=== PATIENT | female | born 1960 | race Caucasian/White ===

== ENCOUNTER 2017-02-25 16:16 | Emergency (ER) | payer OTHER ==
[2017-02-25] MEDS ORDERED: ASPIRIN 325 MG TABLET PO ONE (16:37)
--- NOTE | 2017-02-25 16:39 | ER Document Report ---
ED Medical Screen (RME) - General Chief Complaint: Chest Pain Stated Complaint: CHEST PAIN Time Seen by Provider: 02/25/17 16:37 Mode of Arrival: Ambulatory Information source: Patient TRAVEL OUTSIDE OF THE [place] IN LAST 30 DAYS: No - HPI Patient complains to provider of: CP Onset: Other - Pt. states she has been having intermittent SSCP for the past 3 days Past Medical History Renal/ Medical History: Denies: Hx Peritoneal Dialysis Physical Exam - Vital signs Vitals: Temp Pulse Resp BP Pulse Ox 98.2 F 84 18 129/74 H 98 02/25/17 16:31 02/25/17 16:31 02/25/17 16:31 02/25/17 16:31 02/25/17 16:31 Course - Vital Signs Vital signs: Temp Pulse Resp BP Pulse Ox 98.2 F 84 18 129/74 H 98 02/25/17 16:31 02/25/17 16:31 02/25/17 16:31 02/25/17 16:31 02/25/17 16:31
[2017-02-25 17:31] LABS: ABSOLUTE EOSINOPHILS # (AUTO) 0.1 10^3/uL (0.0-0.6); ABSOLUTE LYMPHOCYTES (AUTO) 1.7 10^3/uL (0.5-4.7); ABSOLUTE MONOCYTES (AUTO) 0.4 10^3/uL (0.1-1.4); ABSOLUTE NEUT (AUTO) 3.4 10^3/uL (1.7-8.2); BASOPHILS % (AUTO) 0.3 % (0-2); EOSINOPHILS % (AUTO) 1.4 % (0-6); HEMOGLOBIN 14.7 g/dL (12.0-15.5); HGB HCT DIFFERENCE 2.1; LYMPHOCYTES % (AUTO) 30.2 % (13-45); MEAN CORPUSCULAR HEMOGLOBIN 30.3 pg (27.0-33.4); MEAN CORPUSCULAR VOLUME 87 fl (80-97); MONOCYTES % (AUTO) 7.9 % (3-13); RED BLOOD COUNT 4.86 10^6/uL (3.72-5.28); RED CELL DISTRIBUTION WIDTH 12.5 % (11.5-14.0); SEGMENTED NEUTROPHILS % (AUTO) 60.2 % (42-78); WHITE BLOOD COUNT 5.7 10^3/uL (4.0-10.5)
--- NOTE | 2017-02-25 17:32 | RADIOLOGY REPORT (SQ) ---
EXAM DESCRIPTION: CHEST PA/LAT COMPLETED DATE/TIME: 02/25/2017 5:24 pm REASON FOR STUDY: CP COMPARISON: None. EXAM PARAMETERS: NUMBER OF VIEWS: two views TECHNIQUE: Digital Frontal and Lateral radiographic views of the chest acquired. RADIATION DOSE: NA LIMITATIONS: none FINDINGS: LUNGS AND PLEURA: No opacities, masses or pneumothorax. No pleural effusion. MEDIASTINUM AND HILAR STRUCTURES: No masses or contour abnormalities. HEART AND VASCULAR STRUCTURES: Heart normal size. No evidence for failure. BONES: No acute findings. HARDWARE: None in the chest. OTHER: No other significant finding. IMPRESSION: NO SIGNIFICANT RADIOGRAPHIC FINDING IN THE CHEST. TECHNICAL DOCUMENTATION: JOB ID: [id number] [employer]- All Rights Reserved
[2017-02-25 17:47] LABS: ALANINE AMINOTRANSFERASE 38 U/L (9-52); ALBUMIN 4.9 g/dL (3.5-5.0); ALKALINE PHOSPHATASE 69 U/L (38-126); ANION GAP 13 (5-19); ASPARTATE AMINO TRANSFERASE 28 U/L (14-36); BILIRUBIN,DIRECT 0.3 mg/dL (0.0-0.4); BILIRUBIN,TOTAL 0.4 mg/dL (0.2-1.3); BLOOD UREA NITROGEN 14 mg/dL (7-20); CALCIUM 9.7 mg/dL (8.4-10.2); CARBON DIOXIDE 28 mmol/L (22-30); CHLORIDE 101 mmol/L (98-107); CREATINE KINASE 79 U/L (30-135); GLUCOSE 94 mg/dL (75-110); TOTAL PROTEIN 7.5 g/dL (6.3-8.2)
[2017-02-25 17:59] LABS: CREATINE KINASE MB 0.94 ng/mL (<4.55)
[2017-02-25 18:13] LABS: TROPONIN I < 0.012 ng/mL
--- NOTE | 2017-02-25 18:37 | EKG REPORT ---
SEVERITY:- NORMAL ECG - SINUS RHYTHM : Confirmed by: Jonel Nichols MD 25-Feb-2017 18:37:13
[2017-02-25] MEDS ORDERED: NITROGLYCERIN 2% OINTMENT 1 GM PACKET TP ONE (20:02)
[2017-02-25] MEDS ORDERED: ACETAMINOPHEN 325 MG TABLET PO ONE (20:03)
--- NOTE | 2017-02-25 20:15 | ER Document Report ---
ED General - General Chief Complaint: Chest Pain Stated Complaint: CHEST PAIN Time Seen by Provider: 02/25/17 16:37 Mode of Arrival: Ambulatory Information source: Patient Notes: This is a 56-year-old female with a history of hypertension, dyslipidemia, COPD and she is a smoker presents to the emergency room with intermittent left chest pain TRAVEL OUTSIDE OF THE [place] IN LAST 30 DAYS: No - HPI Onset: Just prior to arrival Onset/Duration: Gradual Quality of pain: No pain Severity: None Pain Level: Denies Associated symptoms: Chest pain. denies: Fever, Shortness of breath Exacerbated by: Denies Relieved by: Denies Similar symptoms previously: No Recently seen / treated by doctor: No - Related Data Allergies/Adverse Reactions: No Known Allergies Allergy (Unverified 02/25/17 21:24) Home Medications: Current Home Medications Acetaminophen [Tylenol Extra Strength 500 mg Tablet] 500 mg PO DAILYP PRN [History] Aspirin [Aspirin 81 mg Chewable Tablet] 81 mg PO DAILY 02/25/17 [History] Atorvastatin Calcium [Lipitor 20 mg Tablet] 20 mg PO QHS 02/25/17 [History] Cholecalciferol (Vitamin D3) [Vitamin D3 1000 Unit Tablet] 1,000 unit PO DAILY 02/25/17 [History] Cider Vinegar [Apple Cider Vinegar] 450 mg PO DAILY 02/25/17 [History] Lisinopril/Hydrochlorothiazide [Lisinopril-Hctz 10-12.5 mg Tab] 1 tab PO DAILY 02/25/17 [History] Magnesium Oxide [Mag-Ox 400 mg Tablet] 200 mg PO DAILY 02/25/17 [History] Multivitamin [Tab-A-Rody (Multiple Vitamin) Tablet] 1 tab PO DAILY 02/25/17 [ History] Past Medical History - General Information source: Patient - Social History Smoking Status: Former Smoker Cigarette use (# per day): Yes Chew tobacco use (# tins/day): No Frequency of alcohol use: None Drug Abuse: None Lives with: Family Family History: None Patient has suicidal ideation: No Patient has homicidal ideation: No - Past Medical History Cardiac Medical History: Reports: Hx Hypercholesterolemia, Hx Hypertension Pulmonary Medical History: Reports: Hx COPD EENT Medical History: Reports: None Neurological Medical History: Reports: None Endocrine Medical History: Reports: Hx Graves' Disease Renal/ Medical History: Reports: None. Denies: Hx Peritoneal Dialysis Malignancy Medical History: Reports: None GI Medical History: Reports: None Musculoskeltal Medical History: Reports None Skin Medical History: Reports None Psychiatric Medical History: Reports: None Traumatic Medical History: Reports: None Infectious Medical History: Reports: None Past Surgical History: Reports: Hx Appendectomy, Hx Hysterectomy Review of Systems - Review of Systems Constitutional: denies: Chills, Fever EENT: No symptoms reported Cardiovascular: See HPI Respiratory: No symptoms reported Gastrointestinal: No symptoms reported Genitourinary: No symptoms reported Female Genitourinary: No symptoms reported Musculoskeletal: No symptoms reported Skin: No symptoms reported Hematologic/Lymphatic: No symptoms reported Neurological/Psychological: No symptoms reported Physical Exam - Vital signs Vitals: Temp Pulse Resp BP Pulse Ox 98.2 F 84 18 129/74 H 98 02/25/17 16:31 02/25/17 16:31 02/25/17 16:31 02/25/17 16:31 02/25/17 16:31 Notes: Physical exam: GENERAL: 56-year-old female, alert and oriented 3, no acute HEAD: Atraumatic, normocephalic. EYES: Pupils equal round and reactive to light, extraocular movements intact, sclera anicteric, conjunctiva are normal. ENT: TMs normal, nares patent, oropharynx clear without exudates. Moist mucous membranes. NECK: Normal range of motion, supple without obvious mass or JVD. LUNGS: Breath sounds clear to auscultation bilaterally and equal. No wheezes rales or rhonchi. HEART: Regular rate and rhythm without murmurs, rubs or gallops. ABDOMEN: Soft, normoactive bowel sounds. No tenderness to palpation. No guarding, no rebound. No masses appreciated. EXTREMITIES: Normal range of motion, no pitting or edema. No clubbing or cyanosis. NEUROLOGICAL: Cranial nerves II through XII grossly intact. Normal speech, moving all extremities. PSYCH: Normal mood, normal affect. SKIN: Warm, Dry, normal turgor, no rashes or lesions noted. Course - Vital Signs Vital signs: Temp Pulse Resp BP Pulse Ox 97.9 F 74 17 100/78 96 02/25/17 21:07 02/25/17 23:18 02/25/17 21:07 02/25/17 21:07 02/25/17 21:07 - Laboratory Result Diagrams: 02/25/17 17:15 02/25/17 17:15 Laboratory results interpreted by me: 02/25/17 19:28 Ur Leukocyte Esterase SMALL H - Diagnostic Test Radiology reviewed: Image reviewed, Reports reviewed - Chest x-ray shows no infiltrates or effusions - EKG Interpretation by Me Rate: Normal Rhythm: NSR - EKG shows normal sinus rhythm with a ventricular rate of 80, no acute ST-T wave changes Discharge - Discharge Clinical Impression: Chest pain Condition: Stable Disposition: ADMITTED OBSERVATION Admitting Provider: Hospitalist - Dr. Galindo Unit Admitted: Telemetry
[2017-02-25] MEDS ORDERED: LACTULOSE SYRUP 20 GM/30 ML UDCUP PO ONE (20:16)
[2017-02-25 20:18] LABS: APPEARANCE,URINE CLEAR; BILIRUBIN,URINE NEGATIVE (NEGATIVE); GLUCOSE, URINE NEGATIVE (NEGATIVE); KETONES,URINE NEGATIVE (NEGATIVE); LEUKOCYTE ESTERASE,URINE SMALL (NEGATIVE); NITRITE,URINE NEGATIVE (NEGATIVE); PROTEIN,URINE NEGATIVE (NEGATIVE); URINE SPECIFIC GRAVITY 1.003; UROBILINOGEN,URINE NEGATIVE mg/dL (<2.0)
[2017-02-25] MEDS ORDERED: DIAZEPAM 5 MG TABLET PO PRN (20:18)
[2017-02-25] MEDS ORDERED: NITROGLYCERIN 0.4 MG/TAB 25 TAB/BOTTLE SL PRN (20:18)
[2017-02-25 21:33] LABS: CREATINE KINASE MB 0.76 ng/mL (<4.55)
[2017-02-25 21:36] LABS: TROPONIN I < 0.012 ng/mL
[2017-02-25] MEDS ORDERED: ATORVASTATIN CALCIUM 80 MG TABLET PO SCH (22:00)
[2017-02-25] MEDS: FAMOTIDINE 20 MG TABLET PO SCH (22:51)
[2017-02-26 05:09] LABS: CHOLESTEROL 180.18 mg/dL (0-200); CREATINE KINASE 62 U/L (30-135); Direct HDL 44 mg/dL (>40); TRIGLYCERIDES 203 mg/dL (<150)
[2017-02-26 05:19] LABS: DIRECT LDL 111 mg/dL (<100)
[2017-02-26 05:22] LABS: CREATINE KINASE MB 0.68 ng/mL (<4.55)
[2017-02-26 05:23] LABS: VLDL CHOLESTEROL 40.6 mg/dL (10-31)
[2017-02-26 05:28] LABS: TROPONIN I < 0.012 ng/mL
--- NOTE | 2017-02-26 06:15 | PDOC H&P ---
History of Present Illness Admission Date/PCP: 02/25/17 20:18 RAMÍREZ REDDINGC Patient complains of: Chest pain History of Present Illness: MJ RAI is a 56 year old female with a past medical history of hypertension, dyslipidemia, daily tobacco and marijuana use who presents after 3 days of chest pain characterized by reading a list of symptoms from her phone. Symptoms included dull, 3 out of 5, retrosternal chest pain radiating to the left arm neck and jaw lasting approximately 15 minutes associated with palpitations nausea without vomiting or diaphoresis. Symptoms occur while at rest she is unable to identify alleviating or exacerbating factors and is a very vague historian. She denies previous episode though has had a negative stress test approximately a year ago in [place]. She states inconsistent use of blood pressure and dyslipidemia medication. In the emergency room she has an entirely unremarkable workup and is pain-free. She is referred to the hospitalist for observation. Past Medical History Cardiac Medical History: Reports: Hyperlipidema, Hypertension Pulmonary Medical History: Reports: Chronic Obstructive Pulmonary Disease (COPD) EENT Medical History: Reports: None Neurological Medical History: Reports: None Renal/ Medical History: Reports: None Malignancy Medical History: Reports: None GI Medical History: Reports: None Musculoskeltal Medical History: Reports: None Skin Medical History: Reports: None Psychiatric Medical History: Reports: None, Depression Traumatic Medical History: Reports: None Infectious Medical History: Reports: None Past Surgical History Past Surgical History: Reports: Appendectomy, Hysterectomy Social History Information Source: Patient Lives with: Family Smoking Status: Current Every Day Smoker Cigarettes Packs Per Day: 0.5 Last Time Smoked: 45 Frequency of Alcohol Use: None Hx Recreational Drug Use: Yes Drugs: Marijuana Hx Prescription Drug Abuse: No - Advance Directive Resuscitation Status: Full Code Family History Family History: Other - Adopted Parental Family History Reviewed: Yes Children Family History Reviewed: Yes Sibling(s) Family History Reviewed.: Yes Medication/Allergy Home Medications: Acetaminophen [Tylenol Extra Strength 500 mg Tablet] 500 mg PO DAILYP PRN Aspirin [Aspirin 81 mg Chewable Tablet] 81 mg PO DAILY 02/25/17 Atorvastatin Calcium [Lipitor 20 mg Tablet] 20 mg PO QHS 02/25/17 Cholecalciferol (Vitamin D3) [Vitamin D3 1000 Unit Tablet] 1,000 unit PO DAILY 02/25/17 Cider Vinegar [Apple Cider Vinegar] 450 mg PO DAILY 02/25/17 Lisinopril/Hydrochlorothiazide [Lisinopril-Hctz 10-12.5 mg Tab] 1 tab PO DAILY 02/25/17 Magnesium Oxide [Mag-Ox 400 mg Tablet] 200 mg PO DAILY 02/25/17 Multivitamin [Tab-A-Rody (Multiple Vitamin) Tablet] 1 tab PO DAILY 02/25/17 Allergies/Adverse Reactions: No Known Allergies Allergy (Unverified 02/25/17 21:24) Review of Systems Constitutional: ABSENT: chills, fever(s), headache(s), weight gain, weight loss Eyes: ABSENT: visual disturbances Ears: ABSENT: hearing changes Cardiovascular: ABSENT: chest pain, dyspnea on exertion, edema, orthropnea, palpitations Respiratory: ABSENT: cough, hemoptysis Gastrointestinal: ABSENT: abdominal pain, constipation, diarrhea, hematemesis, hematochezia, nausea, vomiting Genitourinary: ABSENT: dysuria, hematuria Musculoskeletal: ABSENT: joint swelling Integumentary: ABSENT: rash, wounds Neurological: ABSENT: abnormal gait, abnormal speech, confusion, dizziness, focal weakness, syncope Psychiatric: ABSENT: anxiety, depression, homidical ideation, suicidal ideation Endocrine: ABSENT: cold intolerance, heat intolerance, polydipsia, polyuria Hematologic/Lymphatic: ABSENT: easy bleeding, easy bruising Physical Exam Vital Signs: Temp Pulse Resp BP Pulse Ox 97.9 F 74 17 100/78 96 02/25/17 21:07 02/26/17 02:00 02/25/17 21:07 02/25/17 21:07 02/25/17 21:07 Intake & Output 02/24/17 02/25/17 02/26/17 11:59 11:59 11:59 Intake Total 5 Balance 5 General appearance: PRESENT: no acute distress, well-developed, well-nourished Head exam: PRESENT: atraumatic, normocephalic Eye exam: PRESENT: conjunctiva pink, EOMI, PERRLA. ABSENT: scleral icterus Ear exam: PRESENT: normal external ear exam Mouth exam: PRESENT: moist, tongue midline Neck exam: ABSENT: carotid bruit, JVD, lymphadenopathy, thyromegaly Respiratory exam: PRESENT: clear to auscultation mirella. ABSENT: rales, rhonchi, wheezes Cardiovascular exam: PRESENT: RRR. ABSENT: diastolic murmur, rubs, systolic murmur Pulses: PRESENT: normal dorsalis pedis pul Vascular exam: PRESENT: normal capillary refill GI/Abdominal exam: PRESENT: normal bowel sounds, soft. ABSENT: distended, guarding, mass, organolmegaly, rebound, tenderness Rectal exam: PRESENT: deferred Extremities exam: PRESENT: full ROM. ABSENT: calf tenderness, clubbing, pedal edema Neurological exam: PRESENT: alert, awake, oriented to person, oriented to place , oriented to time, oriented to situation, CN II-XII grossly intact. ABSENT: motor sensory deficit Psychiatric exam: PRESENT: appropriate affect, normal mood. ABSENT: homicidal ideation, suicidal ideation Skin exam: PRESENT: dry, intact, warm. ABSENT: cyanosis, rash Results Laboratory Results: 02/25/17 02/26/17 20:50 03:20 Triglycerides 203 H Cholesterol 180.18 LDL Cholesterol Direct 111 H VLDL Cholesterol 40.6 H HDL Cholesterol 44 TSH 3.10 02/25/17 02/26/17 02/26/17 20:50 03:20 03:20 Creatine Kinase 62 CK-MB (CK-2) 0.76 0.68 Troponin I < 0.012 < 0.012 Impressions: Chest X-Ray 02/25/17 16:37 IMPRESSION: NO SIGNIFICANT RADIOGRAPHIC FINDING IN THE CHEST. Assessment & Plan - Diagnosis (1) Atypical chest pain Is this a current diagnosis for this admission?: Yes Plan: Atypical chest pain though the patient's pain is atypical there are multiple risk factors for coronary artery disease and subsequently will observe and evaluation of acute coronary syndrome versus coronary artery disease with anginal equivalents. Cardiac monitoring blood pressure Q6 hours ,TSH, lipid profile, serial cardiac enzymes and cardiac stress test (2) Hypertension Is this a current diagnosis for this admission?: Yes Plan: Resume home regiment (3) Dyslipidemia Is this a current diagnosis for this admission?: Yes Plan: Full dose statin follow-up lipid profile (4) Tobacco abuse Is this a current diagnosis for this admission?: Yes Plan: Tobacco Dependence patient received tobacco cessation counseling and offered nicotine replacement options (5) Marijuana dependence Is this a current diagnosis for this admission?: Yes Plan: Patient admits to poor memory, suggested reduction and discontinuation of marijuana. - Time Time Spent: 30 to 50 Minutes - Inpatient Certification Medical Necessity: Need Close Monitoring Due to Risk of Patient Decompensation
[2017-02-26 06:54] LABS: URINE BARBITURATES SCREEN NEGATIVE; URINE METHADONE SCREEN NEGATIVE; URINE OPIATES LOW NEGATIVE; URINE PHENCYCLIDINE SCREEN NEGATIVE
[2017-02-26] MEDS: FAMOTIDINE 20 MG TABLET PO SCH (10:20)
[2017-02-26] MEDS ORDERED: REGADENOSON INJ 0.4 MG/5 ML DISP.SYRIN IV ONE (10:56)
[2017-02-26] MEDS ORDERED: AMINOPHYLLINE INJ/PF 250 MG/10 ML SDV IV ONE (10:56)
[2017-02-26 11:33] LABS: CREATINE KINASE MB 0.69 ng/mL (<4.55)
[2017-02-26 11:34] LABS: TROPONIN I < 0.012 ng/mL
--- NOTE | 2017-02-26 12:10 | PDOC PROGRESS REPORT ---
Subjective Progress Note for:: 02/26/17 Subjective:: The patient is a 56-year-old female who presented with atypical chest pain. She has undergone a stress test. Her chest pain was described as sharp in nature and occurred with movement. She has not had any recent risk factors for pulmonary embolus although she did mention that she felt a sensation of doom. Of note, she has been out of her blood pressure medication for 1 week. Physical Exam Vital Signs: Temp Pulse Resp BP Pulse Ox 97.9 F 72 16 92/65 L 100 02/26/17 07:48 02/26/17 07:48 02/26/17 07:48 02/26/17 07:48 02/26/17 07:48 Intake & Output 02/25/17 02/26/17 02/27/17 06:59 06:59 06:59 Intake Total 905 Balance 905 Weight 72.2 kg Additional comments: The patient is an extremely pleasant and healthy-appearing middle-aged female. She does not appear to be in any distress at this time. Her mentation is appropriate. Her facial appearance is appropriate. Her lungs are clear to auscultation bilaterally. Her cardiac exam is regular without murmurs, gallops or rubs. The abdomen is soft and flat. Bowel sounds are present in the lower quadrants. She does not have any guarding or rebound noted. There are no hernias or masses present. The lower extremities are warm to touch. No edema is present. She moves all 4 extremities. Skin is warm dry and intact without lesions or rashes. Results Laboratory Results: 02/25/17 02/26/17 20:50 03:20 Triglycerides 203 H Cholesterol 180.18 LDL Cholesterol Direct 111 H VLDL Cholesterol 40.6 H HDL Cholesterol 44 TSH 3.10 02/25/17 02/26/17 02/26/17 20:50 03:20 03:20 Creatine Kinase 62 CK-MB (CK-2) 0.76 0.68 Troponin I < 0.012 < 0.012 02/26/17 10:47 Creatine Kinase CK-MB (CK-2) 0.69 Troponin I < 0.012 Impressions: Chest X-Ray 02/25/17 16:37 IMPRESSION: NO SIGNIFICANT RADIOGRAPHIC FINDING IN THE CHEST. Assessment & Plan - Diagnosis (1) Atypical chest pain Is this a current diagnosis for this admission?: Yes (2) Dyslipidemia Is this a current diagnosis for this admission?: Yes (3) Hypertension Is this a current diagnosis for this admission?: Yes (4) Marijuana dependence Is this a current diagnosis for this admission?: Yes (5) Tobacco abuse Is this a current diagnosis for this admission?: Yes - Time Time Spent with patient: 15-24 minutes - Inpatient Certification Medical Necessity: Risk of Diagnosis Which Will Require Inpatient Eval/Care/ Monitoring - Plan Summary Plan Summary: If stress test is negative patient can likely be discharged. She is currently on medications for her hyperlipidemia. She is on medications for her blood pressure. Again, provided her stress test is negative she can follow-up as an outpatient. The etiology of her atypical chest pain is likely musculoskeletal.
[2017-02-26 12:18] VITALS: BP 113/81
--- NOTE | 2017-02-26 12:59 | DRAGON STRESS TEST REPORT ---
INTRAVENOUS LEXISCAN CARDIOLITE STRESS TEST USING SINGLE PHOTON EMMISION COMPUTERIZED TOMOGRAPHIC. DATE OF PROCEDURE: February 26, 2017 INDICATION : Chest pain CARDIAC RISK FACTORS: Hypertension, dyslipidemia, smoking RESTING EKG: Sinus rhythm without any baseline ST-T wave changes STRESS EKG: No significant changes noted with LexiScan bolus REASON FOR TERMINATION: Protocol. PROCEDURE REPORT: Baseline heart rate 80 beats per minute with blood pressure of 113/71. Patient had no significant complaints. Heart rate at 2 minutes post bolus 129 with a blood pressure of 117/69. 3 minutes post bolus heart rate 91 with blood pressure of 116/67. No significant EKG changes were noted. Patient had no significant complaints during the procedure or postprocedure. Patient injected with Aminophyllin 75 mg at 3 minutes or later after Lexiscan bolus. CONCLUSIONS: Normal EKG and hemodynamic response to IV LexiScan. NUCLEAR DATA: At rest the patient was given 10.55 millicuries of technetium 99 sestamibi injected intravenously. As per protocol rest gated SPECT images were obtained. Subsequently the patient was given intravenous LexiScan at a dose of 0.4 mg in 5 mL intravenously, followed by flush with normal saline. Subsequently the stress dose of 30.3 millicuries of technetium 99 sestamibi was injected intravenously. As per protocol stress gated images were obtained. NUCLEAR INTERPRETATION: Both raw and processed data were used for interpretation. Visual, qualitative, computer-generated quantitative data was used. There was good myocardial uptake of technetium compound. Motion artifact and soft tissue attenuations were noted. Increased visceral uptake was noted. No definitive areas of transient perfusion defect noted. No definitive areas of fixed perfusion defect or scars noted. EKG gated imaging showed LV EF at 81 %, rest and stress gated EF similar visually. T. I D. ratio was 0.96. Lung heart ratio noted to be within normal limits 0.28. No significant extracardiac and abnormal radiotracer activities were noted. RV free wall uptake was noted to be mildly increased. IMPRESSION: Also refer to comments under nuclear interpretation. Also test results needs to be interpreted in the context of pretest probability. 1. There is no definitive scintigraphic evidence of LexiScan induced myocardial ischemia. 2. There is no definitive scintigraphic evidence of myocardial infarction/scar. 3. EKG gated imaging shows left ventricular ejection fraction of approximately 81 %. 4. RV free wall uptake noted to be mildly increased. Recommend echocardiogram preferably as an outpatient. 5. Clinical correlation requested as occasionally single vessel disease or balanced ischemia could be missed. In approximately 10% of the cases Lexiscan may not cause adequate vasodilatory stress. RECOMMENDATIONS: Aggressive risk factor modification, medical therapy. Clinical correlation with echocardiogram derived ejection fraction. Inability to exercise by itself can lead to increased cardiovascular event risks. Consider cardiology consultation and or follow-up if clinically indicated. I AM AVAILABLE FOR CARDIOLOGY CONSULTATION AND FOLLOWUP IF REQUESTED BY PMJoan Eddy M.D., [employer] Installer retail shift supervisor, Board certified in cardiovascular diseases, Nuclear cardiology, Echocardiography Cardiac CT and cardiac MRI Ph. [phone] JAZMIN
--- NOTE | 2017-02-26 14:55 | RADIOLOGY REPORT (SQ) ---
EXAM DESCRIPTION: CTA CHEST COMPLETED DATE/TIME: 02/26/2017 2:35 pm REASON FOR STUDY: Dyspnea and chest pain COMPARISON: None. TECHNIQUE: CT scan of the chest performed using helical scanning technique with dynamic intravenous contrast injection. Images reviewed with lung, soft tissue and bone windows. Reconstructed coronal and sagittal MPR images reviewed. Additional 3 dimensional post-processing performed to develop Maximal Intensity Projection images (NH P). All images stored on PACS. All CT scanners at this facility use dose modulation, iterative reconstruction, and/or weight based d osing when appropriate to reduce radiation dose to as low as reasonably achievable (ALARA). [facility]: Dose Right [facility]: CareDose [facility]: Dose Right [facility]: Teradose 4D [facility]: Handmade Mobile CONTRAST TYPE AND DOSE: contrast/concentration: Isovue 370.00 mg/ml; Total Contrast Delivered: 67.0 ml; Total Saline Delivered: 75.0 ml Between the 2 contrast administrations, there is good evaluation of both the pulmonary arteries and a clarisa. RENAL FUNCTION: Creatinine 0.8. Note: Due to initial technical failure during contrast administrat ion (and resultant suboptimal opacification of the pulmonary arteries), patient was reinjected. This was after checking with the referring clinician and verifying normal renal function. Patient receiv ed 67 cc x2. Patient scanned twice. RADIATION DOSE: Up-to-date CT equipment and radiation dose reduction techniques were employed. CTDIv ol: 11.3 mGy. DLP: 434 mGy-cm. . LIMITATIONS: None. FINDINGS: LUNGS AND PLEURA: No masses, infiltrates, pneumothorax. No pleural effusions, calcificati ons. AORTA AND GREAT VESSELS: No aneurysm. Contrast bolus not optimized for the aorta. HEART: No pericardial effusion. No significant coronary artery calcifications. PULMONARY ARTERIES: No emboli visualized in the main pulmonary arteries or the segmental branches. HILAR AND MEDIASTINAL STRUCTURES: No identified masses or abnormal nodes. HARDWARE: None in the chest. UPPER ABDOMEN: No significant findings. Limited exam. THYROID AND OTHER SOFT TISSUES: No masses. No adenopathy. BONES: No acute or significant finding. 3D MIPS: Confirm above findings. OTHER: No other significant finding. IMPRESSION: NORMAL CTA OF THE CHEST. NO PULMONARY EMBOLI. NO AORTIC ANEURYSM OR DISSECTION. COMMENT: Quality ID # [id number]: Final reports with documentation of one or more dose reduction techniques (e.g., Automated exposure control, adjustment of the mA and/or kV according to patient size, use of iterative reconstruction technique) TECHNICAL DOCUMENTATION: JOB ID: [id number] [employer]- All Rights Reserved
--- NOTE | 2017-02-26 15:43 | PDOC DISCHARGE SUMMARY ---
General - Admit/Disc Date/PCP Admission Date/Primary Care Provider: 02/25/17 20:18 [facility] REDDING-Kenneth Discharge Date: 02/26/17 - Discharge Diagnosis (1) Atypical chest pain Is this a current diagnosis for this admission?: Yes (2) Dyslipidemia Is this a current diagnosis for this admission?: Yes (3) Hypertension Is this a current diagnosis for this admission?: Yes (4) Marijuana dependence Is this a current diagnosis for this admission?: Yes (5) Tobacco abuse Is this a current diagnosis for this admission?: Yes - Additional Information Resuscitation Status: Full Code Home Medications: Acetaminophen [Tylenol Extra Strength 500 mg Tablet] 500 mg PO DAILYP PRN Aspirin [Aspirin 81 mg Chewable Tablet] 81 mg PO DAILY 02/25/17 Atorvastatin Calcium [Lipitor 20 mg Tablet] 20 mg PO QHS 02/25/17 Cholecalciferol (Vitamin D3) [Vitamin D3 1000 Unit Tablet] 1,000 unit PO DAILY 02/25/17 Cider Vinegar [Apple Cider Vinegar] 450 mg PO DAILY 02/25/17 Lisinopril/Hydrochlorothiazide [Lisinopril-Hctz 10-12.5 mg Tab] 1 tab PO DAILY 02/25/17 Magnesium Oxide [Mag-Ox 400 mg Tablet] 200 mg PO DAILY 02/25/17 Multivitamin [Tab-A-Rody (Multiple Vitamin) Tablet] 1 tab PO DAILY 02/25/17 History of Present Illness History of Present Illness: MJ RAI is a 56 year old female with a past medical history of hypertension, dyslipidemia, daily tobacco and marijuana use who presents after 3 days of chest pain characterized by reading a list of symptoms from her phone. Symptoms included dull, 3 out of 5, retrosternal chest pain radiating to the left arm neck and jaw lasting approximately 15 minutes associated with palpitations nausea without vomiting or diaphoresis. Symptoms occur while at rest she is unable to identify alleviating or exacerbating factors and is a very vague historian. She denies previous episode though has had a negative stress test approximately a year ago in [place]. She states inconsistent use of blood pressure and dyslipidemia medication. In the emergency room she has an entirely unremarkable workup and is pain-free. She is referred to the hospitalist for observation. Hospital Course Hospital Course: The patient was admitted to observation status. Cardiac enzymes were performed. The patient was ruled out for myocardial infarction by cardiac enzymes. She underwent a Cardiolite stress test on 02/26/2017.The Lexiscan demonstrated no evidence of myocardial ischemia. The left ventricular ejection fraction was estimated to be 81%. Free wall uptake in the right ventricle was noted to be mildly increased. It is recommended that the patient have an echocardiogram as an outpatient. Due to the abnormality of the right ventricle and due to the fact that the patient's symptoms were not explained by the Lexiscan the patient underwent a CT angiogram of the chest. This was negative for any significant parenchymal lung abnormalities. Pulmonary embolus was ruled out. The patient's symptoms are reproducible on physical exam and are likely secondary to costochondritis. The patient was instructed to use over-the -counter Tylenol or ibuprofen. She was informed that her symptoms will likely subside in 5 days. During this hospitalization the patient was noted to have a mildly elevated triglyceride level of 203. Her LDL cholesterol is also slightly elevated 111. The patient will follow up with her primary hospice patient care secretary this week. She will also follow-up with Dr. Eddy in his office this week so that he can perform an echocardiogram. Patient was counseled to discontinue tobacco. Physical Exam Vital Signs: Temp Pulse Resp BP Pulse Ox 98.2 F 79 16 113/81 98 02/26/17 11:11 02/26/17 11:11 02/26/17 11:11 02/26/17 11:11 02/26/17 11:11 Intake & Output 02/25/17 02/26/17 02/27/17 06:59 06:59 06:59 Intake Total 905 Balance 905 Weight 72.2 kg Additional comments: I examined the patient's morning and immediately prior to discharge. Her mentation and cognition are appropriate. Her Coumadin exam is unremarkable. Her breathing is unlabeled. Her lungs are clear to auscultation bilaterally. Her cardiac exam shows a regular rate and rhythm without murmurs, gallops or rubs. Patient does have reproducible chest pain over the left anterior chest consistent with costochondritis. The abdomen is soft and flat. Bowel sounds are present. She has no guarding rebound noted and there are no hernias or masses present. The patient moves all 4 extremities. There is no edema. Skin is warm dry and intact without lesions or rashes. Results Laboratory Results: 02/25/17 02/26/17 20:50 03:20 Triglycerides 203 H Cholesterol 180.18 LDL Cholesterol Direct 111 H VLDL Cholesterol 40.6 H HDL Cholesterol 44 TSH 3.10 02/25/17 02/26/17 02/26/17 20:50 03:20 03:20 Creatine Kinase 62 CK-MB (CK-2) 0.76 0.68 Troponin I < 0.012 < 0.012 02/26/17 10:47 Creatine Kinase CK-MB (CK-2) 0.69 Troponin I < 0.012 Impressions: Chest X-Ray 02/25/17 16:37 IMPRESSION: NO SIGNIFICANT RADIOGRAPHIC FINDING IN THE CHEST. Chest/Abdomen CTA 02/26/17 00:00 IMPRESSION: NORMAL CTA OF THE CHEST. NO PULMONARY EMBOLI. NO AORTIC ANEURYSM OR DISSECTION. Plan Discharge Plan: 1. Follow-up with primary hospice patient care secretary this week 2. Follow-up with Dr. Eddy this week. Dr. Eddy will order further testing to include echocardiogram 3. Discharge activity is as tolerated 4. Discharge diet is cardiac Time Spent: Greater than 30 Minutes
== END 2017-02-26 16:12 | disposition home or self-care (01) ==
LOC: ER 16:16 → EH 20:18 → UNDOADMOB 20:43 → EH 20:43 → 4N 22:02
PROVIDERS: ADMIT Internal Medicine; ATTEND Internal Medicine
DX: R07.89 Other chest pain (principal); E78.5 Hyperlipidemia, unspecified; I10 Essential (primary) hypertension; F12.20 Cannabis dependence, uncomplicated; J44.9 Chronic obstructive pulmonary disease, unspecified; R00.2 Palpitations; F17.210 Nicotine dependence, cigarettes, uncomplicated; Z90.710 Acquired absence of both cervix and uterus; Z79.899 Other long term (current) drug therapy; Z79.82 Long term (current) use of aspirin; Z90.49 Acquired absence of other specified parts of digestive tract
CPT/HCPCS: 93005; 99285; 36415 ×2; 82553 ×2; 82550 ×2; 84443; 85025; 80053; 81001; 84484 ×2; 80307; 80061; 93017; 71020; 78452; 71275; 93010; G0378 ×3; A9500; J2785; J3490 ×2; J0280; Q9969

== ENCOUNTER → 2017-06-28 | Outpatient (CLI) | payer OTHER ==
--- NOTE | 2017-06-28 14:04 | WOMENS IMAGING REPORT ---
EXAM DESCRIPTION: U/S BREAST UNILAT LIMITED COMPLETED DATE/TIME: 06/28/2017 8:40 am REASON FOR STUDY: INCONCLUSIVE FINDINGS R92.8 OTH ABN AND INCONCLUSIVE FINDINGS ON DX IMAGING OF BR E COMPARISON: Mammogram from outside facility dated 05/25/2017. TECHNIQUE: Real-time and static grayscale imaging performed of the right and left breast targeted to the area of clinical/mammographic concern. Selected color Doppler images recorded. LIMITATIONS: None. FINDINGS: RIGHT BREAST: 3 x 5 mm shadowing oil cyst in the superior breast. No solid or cystic lesi ons identified elsewhere. LEFT BREAST: 5 x 7 mm oval mass in the upper-outer breast with central fatty hilum. OTHER: No other significant finding. IMPRESSION: Shadowing oil cyst in the right breast also seen on prior mammogram. Small lymph node i n the upper-outer left breast. The small nodular masses seen on outside screening mammography are no t clearly visualized on the current ultrasound. Would recommend follow-up diagnostic mammography of both breasts with tomosynthesis to re-evaluate these findings and potential directed ultrasound to fo guero. BIRAD: 0 Incomplete: Needs Additional Imaging Evaluation and/or prior Mammograms for Comparison. RECOMMENDATION: RECOMMENDED FOLLOW-UP: Diagnostic mammography of both breasts with tomosynthesis. P otential directed ultrasound to follow. COMMENT: The [employer] ([employer]) has developed recommendations for screening MRI of the breasts in certain patient populations, to be used in conjunction with mammography. Breast MRI s urveillance may be appropriate for women with more than 20% lifetime risk of developing breast cancer as determined by genetic testing, significant family history of the disease, or history of mantle r adiation for Hodgkins Disease. ACR Practice Guidelines 2008. TECHNICAL DOCUMENTATION: JOB ID: [id number] [employer]- All Rights Reserved Reading location - IP/workstation name: [email or web address]
== END ==
LOC: WI 07:42
PROVIDERS: ATTEND Nurse Practitioner Family
DX: N63.21 Unspecified lump in the left breast, upper outer quadrant (principal); N60.01 Solitary cyst of right breast
CPT/HCPCS: 76642